=== PATIENT | female | born 1960 | race Caucasian/White ===

== ENCOUNTER → 2018-04-10 | Outpatient (CLI) | payer OTHER ==
--- NOTE | 2018-04-12 08:22 | MAM ---
EXAM DESCRIPTION: 3D Screening BILATERAL : Digital Mammography. CLINICAL HISTORY: 57 years Female SCREENING . No complaints or personal history of breast cancer. Remote family history of breast cancer and ovarian cancer. Childbirth. Postmenopausal. No HRT. Lifetime risk of developing breast cancer (Tyrer-Cuzick model)(%): 5.5. COMPARISON: Baseline study at this facility. No prior reports available. TECHNIQUE: Bilateral CC and MLO projection full-field images, Digital tomosynthesis mammographic technique. Bilateral digital 2-D full-field MLO images. CAD not utilized. FINDINGS: The breast parenchymal density pattern is: Scattered areas of fibroglandular density. No skin thickening or nipple retraction. Bilateral solitary microcalcifications. Some calcifications are coarse. Bilateral axillary lymph nodes. Increased fibroglandular density in the upper outer quadrant of the posterior third of the right breast compared to the left breast. Focal asymmetry at the 12:30 clock position of the middle third of the right breast approximately 10 cm from the nipple. No new focal, stellate mass or density, focal asymmetry , and no suspicious microcalcifications left breast. IMPRESSION: BI-RADS CATEGORY: 0 - INCOMPLETE- Need additional imaging evaluation. FOLLOW-UP: Recall for additional imaging: Targeted right breast ultrasound of the region of interest.. Written communication concerning the IMPRESSION and Follow-up, will be mailed to the patient and referring health care provider. Electronically signed by: Conor Gómez MD 04/12/2018 8:21 AM CDT
== END ==
LOC: MAMMO 12:53
PROVIDERS: ATTEND Family Medicine
DX: Z12.31 Encounter for screening mammogram for malignant neoplasm of breast (principal)

== ENCOUNTER → 2018-04-29 | Outpatient (CLI) | payer OTHER ==
--- NOTE | 2018-04-29 21:11 | US ---
EXAM DESCRIPTION: Breast,Right: Ultrasound CLINICAL HISTORY: 57 yearsFemaleABNORMAL MAMMOGRAM. Focal asymmetry upper right breast. COMPARISON: Digital screening tomosynthesis bilateral breast 04/10/2018 TECHNIQUE: Transcutaneous scanning of the right breast utilizing johnson-scale and Doppler modes. Scanning performed by the information security associate and Dr. Gómez. FINDINGS: Scanning of the upper right breast 10 cm from the nipple to the retroareolar nipple. Heterogeneous fibroglandular and fatty echotexture. Abutting the nipple, is a anechoic circumscribed mass measuring 3.0 x 2.8 x 2.2 mm with parallel orientation and neutral posterior features. Nonvascular. No distinct solid mass, large calcification, parenchymal edema, or overlying skin changes. 10 cm from the nipple is a hypoechoic mass with circumscribed and lobulated margins measuring 6 x 5 x 3 mm. Parallel orientation and mixed posterior features. Nonvascular. No distinct solid mass, parenchymal edema, large calcification, or overlying skin changes. IMPRESSION: BI-RADS CATEGORY: 3 - PROBABLY BENIGN. Management: Short interval (6-month) digital diagnostic mammography of the right breast and targeted right breast ultrasound, same region of interest as on this examination.. The FINDINGS and the FOLLOW-UP plan were reviewed in person with the patient after the examination. Written communication explaining the IMPRESSION and FOLLOW-UP will be mailed to the patient and referring care provider. Electronically signed by: Conor Gómez MD 04/29/2018 9:09 PM [facility]
== END ==
LOC: US 11:19
PROVIDERS: ATTEND Family Medicine
DX: R92.2 Inconclusive mammogram (principal)

== ENCOUNTER → 2018-09-16 | Outpatient (CLI) | payer OTHER | LOC: GMAE 12:00 | PROVIDERS: ATTEND Family Medicine | DX: M25.541 Pain in joints of right hand (principal); M25.542 Pain in joints of left hand ==

== ENCOUNTER → 2018-10-28 | Outpatient (CLI) | payer OTHER ==
--- NOTE | 2018-10-31 16:57 | US ---
EXAM DESCRIPTION: 3D Diagnostic, Bilateral (accession [id number]), Breast,Right (accession [id number]): Ultrasound CLINICAL HISTORY: 58 yearsFemale6 MO FU. Focal asymmetry middle third of the right breast at 12:30 position. Also small mass density on sonography at this location. COMPARISON: Bilateral screening digital breast tomosynthesis 04/10/2018. Ultrasound of the right breast targeted 04/29/2018. TECHNIQUE: Right LM, CC, and MLO projection full-field images, digital mammographic tomosynthesis technique. Right 2-D digital full-field MLO image. CAD not utilized. . Transcutaneous scanning of the right breast utilizing johnson-scale and Doppler modes. Scanning performed by the dyno technician and Dr. Gómez. FINDINGS: The breast parenchymal density pattern is: Scattered areas of fibroglandular density. No skin thickening or nipple retraction scattered solitary microcalcifications and coarse calcifications in the right breast. Dense central fibroglandular elements again noted. No new focal, stellate mass or density, focal asymmetry , and no suspicious microcalcifications right breast. Ultrasound: Central right breast scanning shows mixture of fibroglandular and fatty echotexture. More fatty tissues and anterior breast. Hypoechoic nodule measuring 4.6 x 5.7 x 3.3 mm at the 12:30 clock position of the right breast 10 cm from the nipple.. Nonvascular. No posterior acoustic characteristics. Stable since the prior study. Anechoic structure with thin rivas in the retroareolar breast at 12:30 position. Dimensions are 3.1 x 3.4 x 2.6 mm. Not vascular. Posterior acoustic enhancement. No dominant solid mass. No parenchymal edema or large calcifications. No overlying skin changes. IMPRESSION: Stable fibroadenoma or lymph node middle third of right breast. Stable retroareolar cyst. ASSESSMENT: BI-RADS CATEGORY: 3 - PROBABLY BENIGN. Management: Short interval (6-month) follow-up diagnostic digital right breast mammogram with targeted ultrasound. Routine digital mammographic 1 year follow-up of the left breast simultaneously. The FINDINGS and the FOLLOW-UP plan were reviewed in person with the patient after the examination. Written communication explaining the IMPRESSION and FOLLOW-UP will be mailed to the patient and referring care provider. Electronically signed by: Conor Gómez MD 10/31/2018 4:55 PM CDT
== END ==
LOC: MAMMO 10:42
PROVIDERS: ATTEND Family Medicine
DX: R92.2 Inconclusive mammogram (principal); N60.01 Solitary cyst of right breast
CPT/HCPCS: 76641; 77066; G0279

== ENCOUNTER → 2019-04-28 | Outpatient (CLI) | payer OTHER ==
--- NOTE | 2019-04-29 12:05 | MAM ---
EXAM DESCRIPTION: Diagnostic Mammo,Bilateral (accession [id number]), Breast,Right (accession [id number]): Ultrasound CLINICAL HISTORY: 58 yearsFemaleSIX MONTH FOLLOW UP FOR ABNORMAL MAMMOGRAM . No complaints. No personal or family history of breast cancer. Remote family history of ovarian cancer. Menarche age 10. Childbirth. Postmenopausal 25+ years no HRT. Lifetime risk of developing breast cancer (Tyrer-Cuzick model)(%): 5.3. COMPARISON: Right breast diagnostic bilateral tomosynthesis and ultrasound 28 Oct 2018. Bilateral screening digital breast tomosynthesis 10 April 2018. Diagnostic digital right breast tomosynthesis and ultrasound 29 April 2018. TECHNIQUE: Bilateral LM, CC, and MLO projection full-field images, digital tomosynthesis technique. Bilateral 2-D digital full-field images. LM, CC, and MLO projections. CAD not available. . Transcutaneous scanning of the right breast utilizing johnson-scale and Doppler modes. Scanning performed by the color depositing machine tender and Dr. Gómez. FINDINGS: The breast parenchymal density pattern is: Scattered areas of fibroglandular density. No skin thickening or nipple retraction bilateral solitary microcalcifications. Left breast axillary lymph nodes. Bilateral vascular calcifications. Denser fibroglandular tissues in the upper outer quadrant bilaterally. More dense in the right upper outer quadrant but this asymmetry is stable. No new focal, stellate mass or density, focal asymmetry , and no suspicious microcalcifications bilaterally. Stable mammograms compared to prior study, taking into account differences in mammographic technique Ultrasound: Scanning of the posterior upper breast in the region of interest compared to prior studies. Scanning in particular 12:30 position 10 cm from the nipple. Oval-shaped hypoechoic mass again noted with partially lobulated and partially circumscribed margins. Not vascular. Wider than tall orientation with no significant posterior acoustic features. Measures 5.5 x 4.7 mm similar size to the prior studies. A distinct cyst measuring 3 x 3 mm is again seen in the adjacent soft tissues. No large calcifications or parenchymal edema. IMPRESSION: Benign exam. BIRAD CATEGORY: 2 BENIGN FINDINGS. RECOMMENDATIONS: FOLLOW UP: Return to routine digital bilateral mammographic screening, one year interval from April 2019. Written communication explaining the IMPRESSION and follow-up, will be mailed to the patient and referring health care provider. The FINDINGS and the FOLLOW-UP plan were reviewed in person with the patient after the examination. According to the [employer], yearly mammograms are recommended starting at age 40 and continuing as long as a woman is in good health. Any breast change noted on a breast self-exam should be reported promptly to the patient's healthcare provider. Breast MRI is recommended for women with an approximately 20-25% or greater lifetime risk of breast cancer, including women with a strong family history of breast or ovarian cancer and women who have been treated for Hodgkin's disease. A negative mammographic report should not delay tissue diagnosis in patients with significant clinical history or physical findings. Extremely dense breast tissue limits the sensitivity of digital mammography. Electronically signed by: Conor Gómez MD 04/29/2019 12:[address] [facility]
== END ==
LOC: MAMMO 10:18
PROVIDERS: ATTEND Family Medicine
DX: R92.2 Inconclusive mammogram (principal)

== ENCOUNTER → 2019-09-01 | Outpatient (CLI) | payer OTHER | DX: M25.522 Pain in left elbow (principal); M79.642 Pain in left hand ==

== ENCOUNTER 2019-09-15 15:15 | Emergency (ER) | payer OTHER ==
--- NOTE | 2019-09-15 16:31 | RAD ---
EXAM DESCRIPTION: Abdomen Series CLINICAL HISTORY: ruq pain 1 week COMPARISON: None Available. TECHNIQUE: PA chest with supine and upright views of the abdomen] FINDINGS: The lungs are clear. An orthopedic anchor is observed in the right shoulder. The heart is normal size. There is an unremarkable bowel gas pattern. There is no mass or calculus. A moderate amount of stool is observed throughout the colon. IMPRESSION: The exam reveals a large stool burden. The exam is otherwise unremarkable. Electronically signed by: Alex Tee MD 09/15/2019 4:29 PM CDT
[2019-09-15] MEDS ORDERED: cefTRIAXone SODIUM 1 GM VIAL IM ONE (17:33)
[2019-09-15] MEDS ORDERED: CIPROFLOXACIN 500 MG TAB PO ONE (17:33)
--- NOTE | 2019-09-15 17:38 | ED.PDOC ---
History of Present Illness - General Chief Complaint: Abdominal Pain Stated Complaint: abdominal pain Time Seen by Provider: 09/15/19 15:44 Source: patient Exam Limitations: no limitations - History of Present Illness Initial Comments: The patient is a 59-year-old female presented emergency room secondary to right sided abdominal discomfort for the last week. 1 week ago she had 3 episodes of nausea and vomiting. She has not had any nausea or vomiting since she has had poor oral intake since that time. No fever. No chills. There is some mild discomfort with walking. No real back pain. She has had an atypical pain to that side of her rib cage for years according to her. No history of pancreatitis. No history of gallbladder problems. She does still have her gallbladder and her appendix. No history of diverticulitis. Severity: mild Improving Factors: nothing Worsening Factors: movement Associated Symptoms: denies symptoms Allergies/Adverse Reactions: Allergies NO KNOWN ALLERGY Allergy (Verified 09/15/19 15:30) Home Medications: Ambulatory Orders Ciprofloxacin [Cipro] 500 mg PO BID #14 tab 09/15/19 Diclofenac [Zorvolex] 35 mg PO TID 09/15/19 Human Insulin Aspart [Novolog] 3 - 6 unit SUBCU AC 09/15/19 Insulin Degludec [Tresiba] 22 unit SC DAILY 09/15/19 Levothyroxine Sodium [Synthroid] 0.112 mg PO DAILY 09/15/19 Liothyronine Sodium 5 mcg PO DAILY 09/15/19 Review of Systems - Review of Systems Constitutional: States: no symptoms reported EENTM: States: no symptoms reported Respiratory: States: no symptoms reported Cardiology: States: no symptoms reported Gastrointestinal/Abdominal: States: see HPI Genitourinary: States: no symptoms reported Musculoskeletal: States: no symptoms reported Skin: States: no symptoms reported Neurological: States: no symptoms reported Endocrine: States: no symptoms reported All other Systems: No Change from Baseline Past Medical History (General) - Patient Medical History Hx Seizures: No Hx Stroke: No Hx of COPD: No Hx Cardiac Disorders: No Hx Congestive Heart Failure: No Hx Pacemaker: No Hx Thyroid Disease: Yes Hx Diabetes: Yes Surgical History: other - Vaccination History Hx Influenza Vaccination: Yes Hx Pneumococcal Vaccination: No - Social History Hx Tobacco Use: No Family Medical History - Family History Mother Family History: No Known Physical Exam - Physical Exam General Appearance: Alert, Comfortable, No apparent distress Eye Exam: bilateral normal Ears, Nose, Throat: hearing grossly normal, normal ENT inspection Neck: full range of motion, supple Respiratory: lungs clear, normal breath sounds, no respiratory distress, no accessory muscle use Cardiovascular/Chest: normal peripheral pulses, regular rate, rhythm, no edema Peripheral Pulses: radial,right: 2+, radial,left: 2+ Gastrointestinal/Abdominal: soft, other - The patient does have discomfort to palpation in the general vicinity of the right upper quadrant. No true rebound or peritoneal signs at this point. No definite palpable mass. Rectal Exam: deferred Back Exam: no CVA tenderness, no vertebral tenderness Extremity: normal range of motion, non-tender, normal inspection, no pedal edema, normal capillary refill Neurologic: instrument man II-XII nml as tested, alert, normal mood/affect, oriented x 3 Skin Exam: normal color Comments: Vital Signs - 24 hr 09/15/19 09/15/19 15:31 16:28 Temperature 98.3 F Pulse Rate [ 75 67 left brachial] Respiratory 18 20 Rate Blood Pressure 148/75 106/77 [left brachial] O2 Sat by Pulse 96 96 Oximetry Progress - Progress Progress: The patient is a 59-year-old female presented emergency room with a week's worth of abdominal pain primarily to the right side. Initially I was most concerned with the likelihood of gallbladder pathology however the patient has no fever, no elevation of her white blood cell count and no elevation of her liver function tests. Abdominal x-ray shows significant constipation which is, given her clinical picture, the most likely source. She has a UTI, which I believe is an incidental finding. She did receive a dose of Rocephin and Cipro here. The patient needs to take a dose of milk of magnesia when she gets home for the constipation. She will be written for a gallon of GoLYTELY to take tomorrow. Encourage a high-fiber diet and use MiraLAX as needed to prevent further constipation issues. Obviously if the patient is worsening rather than improving with his treatment regimen then additional work-up would be warranted. ER warnings are given. vineet [email or web address] [id number] - Results/Orders Results/Orders: Acute abdominal series shows moderate constipation. 09/15/19 16:13 BLOOD CULTURE Stat 09/15/19 17:18 Urine Culture Stat Laboratory Results - last 24 hr 09/15/19 09/15/19 09/15/19 15:56 15:56 15:56 WBC 6.1 RBC 4.36 Hgb 13.1 Hct 38.8 MCV 89.0 MCH 30.0 MCHC 33.7 RDW 14.2 Plt Count 220 MPV 8.9 Absolute Neuts (auto) 3.70 Absolute Lymphs (auto) 1.40 Absolute Monos (auto) 0.40 Absolute Eos (auto) 0.40 Absolute Basos (auto) 0.00 Neutrophils % 61.6 Lymphocytes % 23.8 Monocytes % 7.3 Eosinophils % 6.7 H Basophils % 0.6 PT 9.9 INR 1.00 PTT (SP) 25.2 Sodium 134 L Potassium 4.0 Chloride 102 Carbon Dioxide 24 Anion Gap 12.0 BUN 15 Creatinine 0.75 BUN/Creatinine Ratio 20.0 Random Glucose 167 H Serum Osmolality 272.9 L Lactic Acid Calcium 9.0 Total Bilirubin 0.5 AST 19 ALT 17 Alkaline Phosphatase 75 Creatine Kinase 128 CK-MB (CK-2) 1.8 CK-MB (CK-2) % Not Reportable Troponin I < 0.02 Serum Total Protein 7.0 Albumin 4.0 Globulin 3.0 Albumin/Globulin Ratio 1.3 Amylase 75 Lipase 27 Urine Color Urine Appearance Urine pH Ur Specific [place] Urine Protein Urine Glucose (UA) Urine Ketones Urine Blood Urine Nitrite Urine Bilirubin Urine Urobilinogen Ur Leukocyte Esterase Urine RBC Urine WBC Ur Epithelial Cells Other Crystals Urine Bacteria Urine Mucus 09/15/19 09/15/19 15:56 17:18 WBC RBC Hgb Hct MCV MCH MCHC RDW Plt Count MPV Absolute Neuts (auto) Absolute Lymphs (auto) Absolute Monos (auto) Absolute Eos (auto) Absolute Basos (auto) Neutrophils % Lymphocytes % Monocytes % Eosinophils % Basophils % PT INR PTT (SP) Sodium Potassium Chloride Carbon Dioxide Anion Gap BUN Creatinine BUN/Creatinine Ratio Random Glucose Serum Osmolality Lactic Acid 0.7 Calcium Total Bilirubin AST ALT Alkaline Phosphatase Creatine Kinase CK-MB (CK-2) CK-MB (CK-2) % Troponin I Serum Total Protein Albumin Globulin Albumin/Globulin Ratio Amylase Lipase Urine Color Yellow Urine Appearance Sl cloudy Urine pH 5.5 Ur Specific [place] 1.020 Urine Protein Negative Urine Glucose (UA) Negative Urine Ketones Trace Urine Blood Negative Urine Nitrite Positive H Urine Bilirubin Negative Urine Urobilinogen 0.2 Ur Leukocyte Esterase Small H Urine RBC 0-1 Urine WBC 20-30 H Ur Epithelial Cells 5-10 Other Crystals 1+powder crystals Urine Bacteria 2+ H Urine Mucus Trace Departure - Departure Clinical Impression: Constipation Qualifiers: Constipation type: unspecified constipation type Qualified Code(s): K59.00 - Constipation, unspecified UTI (urinary tract infection) Qualifiers: Urinary tract infection type: acute cystitis Hematuria presence: without hematuria Qualified Code(s): N30.00 - Acute cystitis without hematuria Disposition: Discharge to Home or Self Care Condition: Fair Departure Forms: ED Discharge - Pt. Copy, Patient Portal Self Enrollment Diet: regular diet Activity: increase activity as tolerated Referrals: DINORAH HEADLEY MD [Primary Care Provider] - 1-2 Weeks Prescriptions: Ciprofloxacin [Cipro] 500 mg PO BID #14 tab Home Medications: Ambulatory Orders Ciprofloxacin [Cipro] 500 mg PO BID #14 tab 09/15/19 Diclofenac [Zorvolex] 35 mg PO TID 09/15/19 Human Insulin Aspart [Novolog] 3 - 6 unit SUBCU AC 09/15/19 Insulin Degludec [Tresiba] 22 unit SC DAILY 09/15/19 Levothyroxine Sodium [Synthroid] 0.112 mg PO DAILY 09/15/19 Liothyronine Sodium 5 mcg PO DAILY 09/15/19 Additional Instructions: The patient is a 59-year-old female presented emergency room with a week's worth of abdominal pain primarily to the right side. Initially I was most concerned with the likelihood of gallbladder pathology however the patient has no fever, no elevation of her white blood cell count and no elevation of her liver function tests. Abdominal x-ray shows significant constipation which is, given her clinical picture, the most likely source. She has a UTI, which I believe is an incidental finding. She did receive a dose of Rocephin and Cipro here. The patient needs to take a dose of milk of magnesia when she gets home for the constipation. She will be written for a gallon of GoLYTELY to take tomorrow. Encourage a high-fiber diet and use MiraLAX as needed to prevent further constipation issues. Obviously if the patient is worsening rather than improving with his treatment regimen then additional work-up would be warranted. ER warnings are given.
[2019-09-15] MEDS ORDERED: SODIUM CHL 0.9% 50ML MIN-BAG+ 50 ML IVPB ONE (17:50)
[2019-09-15 18:35] VITALS: BP 163/76; TEMP 97.6; O2SAT 96
== END 2019-09-15 18:36 | disposition home or self-care (01) ==
LOC: ER 15:15
DX: N30.00 Acute cystitis without hematuria (principal); K59.00 Constipation, unspecified; E07.9 Disorder of thyroid, unspecified; E11.9 Type 2 diabetes mellitus without complications; Z79.4 Long term (current) use of insulin; Z79.899 Other long term (current) drug therapy
CPT/HCPCS: 36415; 74019; 80053; 81001; 82150; 82550; 82553; 83605; 83690; 84484; 85025; 85610; 85730; 87040; 87086; J0696; J7050

== ENCOUNTER → 2019-10-09 | Outpatient (CLI) | payer OTHER ==
--- NOTE | 2019-10-09 11:39 | US ---
EXAM DESCRIPTION: Abdomen,Complete: Ultrasound. CLINICAL HISTORY: 59 years FemaleEPIGASTRIC ABDOMINAL TENDERNESS COMPARISON: Abdominal radiographs September 14. Ultrasound abdomen May 2016. TECHNIQUE: Transabdominal scanning: grayscale and Doppler modes. FINDINGS: Gallbladder: Normal size with no intraluminal stones or sludge. Mild wall thickening 3.7 to 3.5 mm. No definite fluid Tender with transducer pressure Common bile duct: 4.0 mm normal caliber. Liver: 15.5 cm long axis right lobe. Normal echogenicity with no focal lesions. Physiologic blood flow and caliber of intrahepatic ducts. Smooth capsule with no ascites. Pancreas: Unremarkable.. Abdominal aorta: Normal caliber from the proximal segment to the distal bifurcation. IVC: visualized; normal caliber. Spleen normal echogenicity; long axis measurement is 10 cm. Right kidney: 11 cm long axis with normal cortical thickness and echogenicity. No echogenic stones, no perirenal fluid, and no hydronephrosis. Left kidney: 10.0 cm long axis with normal cortical thickness and echogenicity. No echogenic stones, pararenal fluid, or hydronephrosis. IMPRESSION: 1. No cholelithiasis of the gallbladder, but mild wall thickening and tender with transducer pressure. This could represent acalculous cholecystitis. Consider hepatobiliary radionuclide scan. Normal caliber of the common bile duct. 2. Normal ultrasound of the liver pancreas and spleen. Bilateral kidneys are negative. Normal caliber of the IVC and abdominal aorta. CRITICAL COMMUNICATION: The critical value was communicated directly by Dr. Gómez via phone call, with Dr. Omid Long, at approximately 1105 hours, on October 09, 2019. Electronically signed by: Conor Gómez MD 10/09/2019 11:37 AM CDT
== END ==
LOC: US 09:05
PROVIDERS: ATTEND Family Medicine
DX: K82.9 Disease of gallbladder, unspecified (principal)

== ENCOUNTER → 2019-10-13 | Outpatient (CLI) | payer OTHER ==
--- NOTE | 2019-10-13 11:24 | NM ---
EXAM DESCRIPTION: Hepatobiliar w/CCK: Nuclear Medicine. CLINICAL HISTORY: EPIGASTRIC ABDOMINAL TENDERNESS COMPARISON: Complete ultrasound abdomen October 09, 2019. TECHNIQUE: Patient was given 8.2 mCi of technetium 99 M mebrofenin (Choletec) radiopharmaceutical IV. Anterior gamma camera images were obtained of the right upper quadrant at 5 minute intervals for one hour . The patient was then given 1.5 mcg CCK IV infusion over 30-minute interval. Gallbladder ejection fraction was evaluated by measuring change in radioactivity in the gallbladder, over 30 min interval. FINDINGS: Completely visualization of liver immediately after administration of radiopharmaceutical. No focal regions of increased or decreased activity, except for the region of the gallbladder. Timely visualization of the intrahepatic and extrahepatic ducts. Initial gallbladder visualization 20 minutes after radiopharmaceutical administration. Minimal reflux into the stomach noted from 25 minutes until 45 minutes after radiopharmaceutical administration. After IV infusion of CCK began, patient experienced right upper quadrant pain but not as severe as previously. At 10 minutes interval, 20 minute interval, and 30 minute interval after infusion began, essentially no decrease in activity in the gallbladder. Continued progression of the radial pharmaceutical through the intestine is noted. IMPRESSION: 1. No intrahepatic or extrahepatic ductal obstruction. Delayed visualization of gallbladder until 20 minutes after administration of radiopharmaceutical. 2. Essentially no gallbladder ejection of radiopharmaceutical with CCK; 0 gallbladder ejection fraction. This could represent acalculus cholecystitis, chronic cholecystitis, or gallbladder dyskinesia. Electronically signed by: Conor Gómez MD 10/13/2019 11:22 AM CDT
== END ==
LOC: NM 08:45
PROVIDERS: ATTEND Family Medicine
DX: K82.9 Disease of gallbladder, unspecified (principal)
CPT/HCPCS: 78227; A9537

== ENCOUNTER 2019-10-17 05:40 | Day surgery (SDC) | payer OTHER ==
--- NOTE | 2019-10-15 16:05 | RAD ---
EXAM DESCRIPTION: Chest,2 Views CLINICAL HISTORY: z01.811 preop COMPARISON: MRI thoracic spine dated August 19, 2013 TECHNIQUE: Two-view radiograph of the chest FINDINGS: Mild calcific atherosclerosis of the aortic arch. Cardiac silhouette shows upper limits of normal in size. Pulmonary vascularity is within normal limits. Lungs show no confluent infiltrates. No pleural effusion. No pneumothorax. Degenerative changes of the thoracic spine. Redemonstrated chronic anterior compression deformity fracture of a thoracic vertebral body, not significant change in appearance compared to August 19, 2013. IMPRESSION: No acute cardiopulmonary process. Electronically signed by: Alex Herndon MD 10/15/2019 4:04 PM CDT
[2019-10-17] MEDS ORDERED: MAGNESIUM SULFATE INJ 1 GM/2 ML VIAL IVPB ONE (05:41)
[2019-10-17] MEDS ORDERED: PROPOFOL 200 MG/20 ML VIAL IV ONE (05:41)
[2019-10-17] MEDS ORDERED: ePHEDrine SULF 50 MG/ML IV ONE (05:41)
[2019-10-17] MEDS ORDERED: METOCLOPRAMIDE HCL INJ 10 MG/2 ML VIAL IV ONE (05:41)
[2019-10-17] MEDS ORDERED: METOPROLOL TARTRATE INJ 5 MG/5 ML VIAL IV ONE (05:41)
[2019-10-17] MEDS ORDERED: LIDOCAINE 1% 10 ML VIAL INJ ONE (05:41)
[2019-10-17] MEDS ORDERED: GLYCOPYRROLATE 0.2 MG/ML VIAL IV ONE (05:41)
[2019-10-17] MEDS ORDERED: ONDANSETRON INJ 4 MG/2 ML VIAL IV ONE (05:41)
[2019-10-17] MEDS ORDERED: diphenhydrAMINE HCL 50 MG/ML VIAL IV ONE (05:41)
[2019-10-17] MEDS ORDERED: LACTATED RINGERS 1,000 ML ONE (06:54)
[2019-10-17] MEDS ORDERED: SODIUM CHL 0.9% 100ML MINI-BAG 100 ML IVPB ONE (06:55)
[2019-10-17] MEDS ORDERED: ceFAZolin SODIUM 1 GM VIAL ONE (06:55)
[2019-10-17] MEDS ORDERED: BUPIVACAINE 0.25% W/EPI 50 ML VIAL INJ ONE (10:59)
[2019-10-17] MEDS ORDERED: HEPARIN SODIUM (PORCINE) 10,000 UNITS/ML VIAL ONE (10:59)
[2019-10-17] MEDS ORDERED: LACTATED RINGERS 1,000 ML IVS ONE (11:48)
[2019-10-17] MEDS ORDERED: fentaNYL CITRATE INJ 50 MCG/ML 2 ML AMP ONE ×2 (13:30→15:05)
[2019-10-17] MEDS ORDERED: KETAMINE HCL 100 MG/ML VIAL ONE (13:30)
[2019-10-17] MEDS ORDERED: MIDAZOLAM INJ 2 MG/2 ML VIAL ONE (13:30)
[2019-10-17] MEDS ORDERED: ROCURONIUM BROMIDE 10 MG/ML VIAL ONE (13:30)
[2019-10-17] MEDS ORDERED: DEXMEDETOMIDINE HCL 200 MCG/2 ML INJ IV ONE (14:06)
[2019-10-17] MEDS ORDERED: SUGAMMADEX SODIUM 200 MG/2 ML VIAL IV ONE (15:07)
--- NOTE | 2019-10-17 15:48 | OP ---
DATE OF PROCEDURE: 10/17/19 PREOPERATIVE DIAGNOSIS: 1. Right upper quadrant abdominal pain. 2. Abnormal HIDA scan with delayed visualization and no ejection fraction. POSTOPERATIVE DIAGNOSIS: 1. Right upper quadrant abdominal pain. 2. Abnormal HIDA scan with delayed visualization and no ejection fraction. 3. Chronic cholecystitis. PROCEDURE: 1. Laparoscopic cholecystectomy with intraoperative cholangiography using fluoroscopy. SURGEON: Dixon Barboza MD. KEG HEADER: None. ANESTHESIA: Local infiltration of 0.25% Marcaine with epinephrine and general endotracheal anesthesia. INDICATION: The patient is a 59-year-old female who has had right upper quadrant pain with nausea and fatty food intolerance. She has been worked up. Ultrasound was negative and HIDA scan was as noted with delayed visualization of the gallbladder followed by 0% ejection fraction. She was noted to be tender over the gallbladder. After the risks, benefits and alternatives to cholecystectomy were discussed and accepted, the patient was brought to the Surgical Suite today for cholecystectomy. FINDINGS: As noted, the cholangiogram revealed free flow into the duodenum with no filling defects or strictures noted. There were multiple adhesions to the gallbladder from the omentum. Upon opening the gallbladder on the back table, there were a small number of tiny stones that would probably be what would be called sludge. No other pathology is identified. DESCRIPTION OF PROCEDURE: After adequate general endotracheal anesthesia was obtained, the patient was prepped and draped in the usual sterile manner. Surgical time-out was taken. The infraumbilical area was infiltrated with 0.25% Marcaine with epinephrine. A transverse incision was then made with a sharp knife. Dissection was carried down through the skin and subcutaneous tissue to the midline fascia. Traction sutures were placed on either side of the midline. A small incision was made in the midline fascia and the peritoneum was opened bluntly. Gilda trocar was introduced under direct vision into the abdominal cavity and fixed in place with the 20 mL balloon. CO2 was then insufflated until a pressure of 12 mmHg was reached and the abdomen was tympanitic in all four quadrants. When this was done, the laparoscope was introduced. The abdomen was inspected with the previously noted findings. The patient was then placed in reverse Trendelenburg position and turned to the left side. The upper abdominal ports were placed under direct vision. The gallbladder was grasped, retracted anteriorly and laterally. The adhesions to the gallbladder were taken down using electrocautery and blunt dissection. The neck of the gallbladder was retracted laterally. The triangle of Calot was then explored with the cystic duct and cystic artery identified and isolated. The cystic duct was hemoclipped once proximally. The cystic artery was hemoclipped twice proximally and once distally. A small incision was made in the cystic duct. The cholangiogram catheter was introduced through a separate stab wound in the right upper quadrant, introduced into the cystic duct and clipped in place. Cholangiograms were then taken using fluoroscopy which revealed free flow into the duodenum with no filling defects or strictures noted. When this was done, the cystic duct catheter was removed. The cystic duct was hemoclipped three times distally and divided between the hemoclips. The cystic artery was divided. Another area of bleeding on the gallbladder bed of the liver was identified and clipped. The gallbladder was then dissected free from the gallbladder bed of the liver using electrocautery. The gallbladder was removed from the infraumbilical port site in the usual manner under direct vision. When this was done, the subhepatic space and subphrenic space were irrigated copiously with saline. The effluent was noted to be clear. A small amount of bleeding on the gallbladder bed of the liver was controlled with electrocautery. The bethel hepatis was inspected and no bleeding or bile leak was identified. The upper abdominal ports were removed and adequate hemostasis was noted. At this point, the CO2, the laparoscope and the infraumbilical port were removed. The infraumbilical port site fascia was approximated with a single [id number] suture of 0 Vicryl. Subcutaneous tissue was irrigated with saline. Skin edges were approximated with 4-0 Vicryl subcuticular sutures, benzoin and Steri-Strips. Sterile dressings were applied. The patient was awakened and taken to the Recovery Room in good and stable condition. Estimated blood loss was less than 50 mL. All sponge, needle and instrument counts were correct. #[id number] MTDD
[2019-10-17] MEDS ORDERED: HYDROcodone 5MG/APAP 325MG 1 EA TAB ONE (16:27)
[2019-10-17 17:55] VITALS: BP 108/64; TEMP 98.6; O2SAT 95
== END 2019-10-17 17:30 | disposition home or self-care (01) ==
LOC: AMB 05:40
PROVIDERS: ATTEND Surgery
DX: K80.10 Calculus of gallbladder with chronic cholecystitis without obstruction (principal); R94.5 Abnormal results of liver function studies; E11.9 Type 2 diabetes mellitus without complications; E03.9 Hypothyroidism, unspecified; M19.90 Unspecified osteoarthritis, unspecified site; Z79.4 Long term (current) use of insulin; Z79.899 Other long term (current) drug therapy
CPT/HCPCS: 00790; 36415; 36416; 47563; 71046; 76000; 80053; 81001; 82948; 85025; 87086; 93005; J0690; J1200; J1644; J2250; J2405; J2765; J3010; J3475; J3490; J7050; J7120